=== PATIENT | female | born 1990 | race Caucasian/White ===

== ENCOUNTER → 2024-05-12 09:01 | Outpatient (CLI) | payer OTHER, SELFPAY | PROVIDERS: Visit Provider Physician Assistant Medical | DX: J02.9 Acute pharyngitis, unspecified (principal) | CPT/HCPCS: 87070 ==

== ENCOUNTER → 2024-05-14 08:14 | Outpatient (CLI) | payer OTHER, SELFPAY ==
[2024-05-14 09:36] LABS: Adenovirus Not Detected (Not Detect); B. parapertussis Not Detected (Not Detecte); Bordetella pertussis Not Detected (Not Detect); Chlamydophila pneumoniae Not Detected (Not Detect); Coronavirus 229E Not Detected (Not Detect); Coronavirus HKU1 Not Detected (Not Detect); Coronavirus NL 63 Detected (Not Detect); Coronavirus OC43 Not Detected (Not Detect); Human Metapneumovirus Not Detected (Not Detect); Human Rhinovirus/Enterovirus Not Detected (Not Detect); Influenza A Not Detected (Not Detect); Influenza B Not Detected (Not Detect); Mycoplasma pneumoniae Not Detected (Not Detect); Parainfluenza Virus 1 Not Detected (Not Detect); Parainfluenza Virus 2 Not Detected (Not Detect); Parainfluenza Virus 3 Not Detected (Not Detect); Parainfluenza Virus 4 Not Detected (Not Detect); Respiratory Syncytial Virus Not Detected (Not Detect); SARS- CoV-2 Not Detected (Not Detecte)
== END ==
PROVIDERS: Visit Provider Nurse Practitioner Family
DX: R05.1 Acute cough (principal)
CPT/HCPCS: 87633

== ENCOUNTER 2024-05-18 11:31 | Emergency (ER) | payer OTHER, SELFPAY ==
[2024-05-18 11:34] VITALS: BP 116/70; PULSE 104; RESP 18; TEMP 36.9; O2SAT 100; BMI 20.2
--- NOTE | 2024-05-18 11:45 | DI.RAD.S_ITS ---
PROCEDURE: XR CHEST 1V INDICATIONS: eval for PNA TECHNIQUE: One view of the chest was acquired. COMPARISON: None. FINDINGS: Surgical changes and devices: None. Lungs and pleura: No dense consolidation or pleural effusions. Mediastinum: Normal heart size Bones and chest wall: Unremarkable IMPRESSION: No acute radiographic abnormality on this single view study. Dictated by: Florin Encinas M.D. on 05/18/2024 at 11:17 Approved by: Florin Encinas M.D. on 05/18/2024 at 11:17
--- NOTE | 2024-05-18 11:54 | ED.GENADULT ---
HPI - General Adult General Chief complaint: Upper Respiratory Symptoms Stated complaint: COVID +, Severe Cough Time Seen by Provider: 05/18/24 11:40 Source: patient Mode of arrival: Ambulatory History of Present Illness HPI narrative: Patient is a 33-year-old female. No underlying lung pathology. Approximately 6 days ago was diagnosed with coronavirus (not COVID-19). She was 13 weeks . She was here because of a severe cough and is concerned about pneumonia. No fevers. Nonproductive cough. Related Data Home Medications Medication Instructions Recorded Confirmed ferrous sulfate 325 mg (65 mg 325 mg PO DAILY 04/19/24 05/14/24 iron) tablet (FeroSul) vitamin-ferrous sulfate tab PO 04/19/24 05/14/24 27 mg iron-folic acid 0.8 mg tablet Previous Rx's Medication Instructions Recorded ondansetron 4 mg disintegrating 4 mg PO Q8H PRN nausea and 05/16/24 tablet vomiting #30 tabs Allergies Allergy/AdvReac Type Severity Reaction Status Date / Time No Known Drug Allergies Allergy Verified 05/18/24 11:39 Review of Systems Review of Systems Narrative: See HPI Patient History Medical History Recurrent UTI History of strep sore throat Surgical History (Updated 04/19/24 @ 10:07 by Nadia Carmona RN) No pertinent past surgical history Family History (Updated 04/19/24 @ 10:11 by Nadia Carmona RN) Father Pacemaker Heart disease Grandfather Diabetes mellitus Colon cancer Grandfather Heart disease Uncle Cancer Uncle Diabetes mellitus Social History marital status: number of children: 1 household members: spouse and children lives independently: Yes caregiver/support person: Yes housing: house pets and animals: Yes (dog) education level: college (Associate's degree) occupational status: previously employed current occupational exposures/hazards: No special mihir needs: Yes travel history: recent (domestic only) seatbelt use: always water heater temp set < 120 deg: Yes working smoke detector in home: Yes fire extinguisher in home: Yes carbon monox detector in home: Yes firearms in home: Yes firearms unloaded and locked: Yes do you feel safe at home: Yes Smoking Status: Never smoker second hand exposure: No alcohol intake: former (occasional glass wine or cocktail when not ) substance use type: does not use during the past year weight has: remained stable (back to normal pre- weight) well-balanced diet: daily or most days daily servings fruits/ve or more times/day caffeine: Yes (AM cup coffee) Type(s) of exercise: walking Smoking Status: Never smoker Exam Initial Vital Signs Initial Vital Signs: Vital Signs Temperature 98.5 F 05/18/24 11:34 Pulse Rate 104 H 05/18/24 11:34 Respiratory Rate 18 05/18/24 11:34 Blood Pressure 116/70 05/18/24 11:34 Pulse Oximetry 100 05/18/24 11:34 Oxygen Delivery Method Room Air 05/18/24 11:34 Const General: cooperative, comfortable and No ill appearing HENMT Head: normal to inspection and normocephalic Resp Effort & Inspection: normal respiratory effort Auscultation: clear to auscultation bilaterally Cardio Rate: regular rate Rhythm: regular rhythm Skin General: no rashes or lesions noted Course Orders Ordered: ED Orders 05/18/24 11:45 XR chest 1V Stat Vital Signs Vital signs: Vital Signs - 8 hr 05/18/24 11:34 Temperature 98.5 F Pulse Rate 104 H Respiratory Rate 18 Blood Pressure 116/70 Pulse Oximetry 100 Oxygen Delivery Method Room Air Medical Decision Making Imaging Data Chest x-ray: Radiologist's Impression: PROCEDURE: XR CHEST 1V INDICATIONS: eval for PNA TECHNIQUE: One view of the chest was acquired. COMPARISON: None. FINDINGS: Surgical changes and devices: None. Lungs and pleura: No dense consolidation or pleural effusions. Mediastinum: Normal heart size Bones and chest wall: Unremarkable IMPRESSION: No acute radiographic abnormality on this single view study. MDM Narrative Medical decision making narrative: Patient has known non COVID-19 coronavirus infection. Chest x-ray is unremarkable. Lungs are clear. Not hypoxic. No respiratory distress. I did discuss this with her. We discussed the use of Tylenol for fevers or body aches. Recommended that she talk with her pharmacist about other cough and cold preparations that can be safe in . She was given return precautions and follow-up instructions. She expressed understanding and agreement. Discharge Plan Departure Patient Disposition: Home Clinical Impression: Upper respiratory infection Instructions: Cough Activity Restrictions/Additional Instructions: Continue to take all of your medications as directed. Contact your primary care doctor for a follow-up. Return to the emergency department for new or worsening symptoms. Prescriptions: No Action ondansetron 4 mg tablet,disintegrating 4 mg PO Q8H PRN (Reason: nausea and vomiting) Qty: 30 0RF vit-ferrous sulfat-FA 27 mg iron- 0.8 mg tablet PO ferrous sulfate [FeroSul] 325 mg (65 mg iron) tablet 325 mg PO DAILY Referrals: Miscellaneous,Doctor, MD [Primary Care Provider] - Stand Alone Forms: Patient Portal/API/Survey
[2024-05-18 12:54] VITALS: BP 110/70; PULSE 100; RESP 20; TEMP 37; O2SAT 100
== END 2024-05-18 12:55 | disposition home or self-care (01) ==
PROVIDERS: Emergency Provider Emergency Medicine
DX: O99.511 Diseases of the respiratory system complicating pregnancy, first trimester (principal); Z3A.13 13 weeks gestation of pregnancy
CPT/HCPCS: 71045; 99281; 99283

== ENCOUNTER → 2024-05-27 09:20 | Outpatient (CLI) | payer OTHER, SELFPAY ==
[2024-05-27 10:29] LABS: Add Manual Diff / Slide Review NO; Basophils Absolute Auto 0 /uL (0-100); Basophils Percent Auto 0.4 % (0-2); Eosinophils Absolute Auto 100 /uL (0-450); Eosinophils Percent Auto 0.6 % (2-4); Hematocrit 32.7 % (36-46); Hemoglobin 11.1 g/dL (12.0-16.0); Lymphocytes Absolute Auto 1900 /uL (1100-4500); Lymphocytes Percent Auto 17.3 % (25-40); Mean Corpuscular HGB Conc 34.1 % (30-36); Mean Corpuscular Hemoglobin 30.4 PG (26-34); Mean Corpuscular Volume 89.1 fL (80-100); Monocytes Absolute Auto 500 /uL (0-900); Neutrophils Absolute Auto 8300 /uL (1500-7000); Neutrophils Percent Auto 76.7 % (50-75); Platelet Count 367 X10^3/uL (150-400); Red Blood Cell Count 3.67 X10^6/uL (4.0-5.2); Red Cell Distribution Width 13.2 % (11.6-14.8); White Blood Cell Count 10.8 X10^3/uL (4.5-11.0)
[2024-05-27 10:50] LABS: Natera Collection Specimen Collected
[2024-05-27 11:40] LABS: Hepatitis B Surface Antigen NEGATIVE s/c (NEGATIVE); Rubella Antibody IgG 13.8 IU/mL (>15)
[2024-05-27 12:00] LABS: HIV 1 & 2 Ab/Ag 4th Gen Combo NEGATIVE (NEGATIVE); Hep C Virus Ab w/Reflex Quant NEGATIVE s/c (NEGATIVE)
[2024-05-28 08:10] LABS: RPR Screen Non Reactive (Non Reactive)
[2024-05-28 09:08] LABS: Varicella IgG Antibody Reactive (Non Reactive)
== END ==
PROVIDERS: Referring Provider Student in an Organized Health Care Education/Training Program; Visit Provider Student in an Organized Health Care Education/Training Program
DX: Z34.81 Encounter for supervision of other normal pregnancy, first trimester (principal); Z36.0 Encounter for antenatal screening for chromosomal anomalies
CPT/HCPCS: 36415; 80055; 86787; 86803; 86850; 86900; 86901; 87086; 87389

== ENCOUNTER → 2024-07-12 13:56 | Outpatient (CLI) | payer OTHER, SELFPAY ==
--- NOTE | 2024-07-12 13:57 | DI.US.S_ITS ---
PROCEDURE: US OB >= 14 WEEKS FETUS INDICATIONS: ANATOMY OUTSIDE/PRIOR DATING DATA: Last menstrual period (LMP): Unsure. LMP-based estimated date of delivery (BUSHRA): 11/23/24. First dating scan (date and location): 04/22/24. Estimated date of delivery (BUSHRA) from first dating scan: 11/24/24. The calculations are made using the working BUSHRA of 11/24/24. TECHNIQUE: Real-time scanning was performed of the fetus, with image documentation and biometric measurements. Endovaginal scanning: Yes COMPARISON: None. FINDINGS: General: A single living intrauterine gestation is present. Presentation: Vertex. Placenta: Placental position is posterior and low lying. The edge is about 1.3 cm from the internal cervical os by transvaginal imaging. The placental cord insertion is also low, from 0.7-0.9 cm from the inferior placental edge. There is a loop of cord presenting between the head and cervical os. No definite Vasa previa is seen.. Amniotic fluid index: 17.7 cm, normal range is 5-24 cm. Single deepest vertical pocket is 5.2 cm. heart rate: 144 beats per minute. Maternal cervical canal: Closed and 4.0 cm long. Normal lower limit is 2.5 cm. biometrics: Biparietal diameter: 4.9 cm, 20 weeks six days Head circumference: 17.9 cm, 20 weeks two days Abdominal circumference: 16.4 cm, 21 weeks three days Femur length: 3.5 cm, 20 weeks six days Clinically estimated gestational age: 20 weeks six days Composite gestational age from present scan: 20 weeks six days Estimated weight and percentile: 399 g, 58th percentile Anatomic survey: Neuro: Ventricles are non-dilated at less than 10 mm. Cisterna magna is normal at 3-11 mm. Cerebellum is normal in size and morphology. Nuchal skin fold: Normal at less than 6 mm between 14-21 weeks gestational age. Face: Nose and lips, facial profile are normal. Spine: No evidence for spina bifida. Heart: 4-chambered heart is present, with normal ventricular outflow tracts. Diaphragm: Diaphragm is intact. Stomach: Left-sided stomach is present. Kidneys: No hydronephrosis. Normal is less than 5 mm in 2nd trimester, less than 7 mm in 3rd trimester. Cord: 3-vessel cord has orthotopic insertion. Bladder: Normal in size. Extremities: All 4 extremities identified. IMPRESSION: Single live intrauterine with estimated weight at the 58th percentile. Symmetric growth and normal anatomy. Composite gestational age is in good agreement with the working gestational age. Posterior low lying placenta with also a low marginal cord insertion. No definite Vasa previa. Close follow-up is recommended. Closed cervix and normal amniotic fluid volume. We strive to produce accurate, complete, and clear reports of imaging services. To assist us in improving patient care, this report was composed using standard report templates and voice recognition software. Therefore, it may contain abnormal punctuation, insertions and/or omissions. Occasional wrong-word or sound-alike substitutions may occur. Though we review the report and make efforts to correct it, we do recommend that the report be read carefully in proper context to recognize any text inaccuracies. Dictated by: Samina Marin M.D. on 07/14/2024 at 8:24 Approved by: Samina Marin M.D. on 07/14/2024 at 9:20
== END ==
PROVIDERS: PCP Family Medicine; Referring Provider Student in an Organized Health Care Education/Training Program; Visit Provider Student in an Organized Health Care Education/Training Program
DX: O44.42 Low lying placenta NOS or without hemorrhage, second trimester (principal); O43.192 Other malformation of placenta, second trimester; Z3A.20 20 weeks gestation of pregnancy
CPT/HCPCS: 76811; 76817

== ENCOUNTER → 2024-09-02 10:09 | Outpatient (CLI) | payer OTHER, SELFPAY ==
[2024-09-02 12:18] LABS: GTT (PREG) 1 Hour PP 50gm Dose 83 mg/dL (76-139)
[2024-09-02 12:21] LABS: Hematocrit 32.4 % (36-46); Hemoglobin 11.2 g/dL (12.0-16.0)
== END ==
PROVIDERS: PCP Family Medicine; Referring Provider Student in an Organized Health Care Education/Training Program; Visit Provider Student in an Organized Health Care Education/Training Program
DX: Z13.0 Encounter for screening for diseases of the blood and blood-forming organs and certain disorders involving the immune mechanism (principal); Z13.1 Encounter for screening for diabetes mellitus
CPT/HCPCS: 36415; 82950; 85014; 85018

== ENCOUNTER → 2024-10-03 06:44 | Outpatient (CLI) | payer OTHER, SELFPAY ==
--- NOTE | 2024-10-03 06:45 | DI.US.S_ITS ---
PROCEDURE: US OB LIMITED INDICATIONS: EFW; PLACENTA, CI OUTSIDE/PRIOR DATING DATA: LMP-based estimated date of delivery (BUSHRA): 11/23/24. First dating scan (date and location): 04/22/24. Estimated date of delivery (BUSHRA) from first dating scan: 11/24/24. The calculations are made using the sonographic BUSHRA of 11/24/24. TECHNIQUE: Real-time scanning was performed of the fetus, with image documentation and biometric measurements. Endovaginal scanning: For improved cervical detail COMPARISON: [facility], , US OB >= 14 WEEKS FETUS, 07/12/2024, 14:06. FINDINGS: General: A single living intrauterine gestation is present. Presentation: Vertex. Placenta: Placental position is posterior to the left , without previa. Mature appearance. Placental cord origin was not seen. Amniotic fluid index: 9.4 cm, normal range is 5-24 cm. Single deepest vertical pocket is 4.1 cm. heart rate: 135 beats per minute. Maternal cervical canal: Closed and 3.5 cm long. Transvaginal imaging demonstrated no evidence of vascular structures crossing the internal cervical os. Normal lower limit is 2.5 cm. biometrics: Biparietal diameter: 8.0 cm, 32 weeks 0 days Head circumference: 28.9 cm, 31 weeks six days Abdominal circumference: 27.8 cm, 31 weeks six days Femur length: 6.2 cm, 31 weeks six days Clinically estimated gestational age: 32 weeks four days Composite gestational age from present scan: 31 weeks six days Estimated weight and percentile: 1861 g, 21st percentile IMPRESSION: Single living intrauterine with estimated weight at the 21st percentile. Symmetric growth. Posterior placenta without evidence of previa. No Vasa previa by transvaginal imaging. Placental cord origin is not well seen. We strive to produce accurate, complete, and clear reports of imaging services. To assist us in improving patient care, this report was composed using standard report templates and voice recognition software. Therefore, it may contain abnormal punctuation, insertions and/or omissions. Occasional wrong-word or sound-alike substitutions may occur. Though we review the report and make efforts to correct it, we do recommend that the report be read carefully in proper context to recognize any text inaccuracies. Dictated by: Samina Marin M.D. on 10/03/2024 at 13:24 Approved by: Samina Marin M.D. on 10/03/2024 at 13:32
== END ==
PROVIDERS: PCP Family Medicine; Referring Provider Student in an Organized Health Care Education/Training Program; Visit Provider Student in an Organized Health Care Education/Training Program
DX: O43.193 Other malformation of placenta, third trimester (principal); O26.843 Uterine size-date discrepancy, third trimester; Z3A.32 32 weeks gestation of pregnancy
CPT/HCPCS: 76815

== ENCOUNTER → 2024-10-28 09:05 | Outpatient (CLI) | payer OTHER, SELFPAY ==
[2024-10-29 14:14] LABS: Strep Grp B PCR NEG for Grp B Strep
== END ==
PROVIDERS: PCP Family Medicine; Visit Provider Student in an Organized Health Care Education/Training Program
DX: Z36.85 Encounter for antenatal screening for Streptococcus B (principal)
CPT/HCPCS: 87653

== ENCOUNTER 2024-11-17 10:24 | Outpatient (CLI) | payer OTHER, SELFPAY | END 2024-11-17 11:13 | disposition home or self-care (01) | LOC: LABOR 10:27 → OB 11:17 | PROVIDERS: PCP Family Medicine; Referring Provider Obstetrics & Gynecology; Visit Provider Student in an Organized Health Care Education/Training Program | DX: O26.23 Pregnancy care for patient with recurrent pregnancy loss, third trimester (principal); Z3A.39 39 weeks gestation of pregnancy | CPT/HCPCS: 59025; G0378; G0379 ==

== ENCOUNTER 2024-11-21 14:14 | Outpatient (CLI) | payer OTHER, SELFPAY | END 2024-11-21 14:45 | disposition home or self-care (01) | LOC: LABOR 14:28 → OB 11-22 06:07 | PROVIDERS: PCP Family Medicine; Referring Provider Obstetrics & Gynecology; Visit Provider Obstetrics & Gynecology | DX: O43.893 Other placental disorders, third trimester (principal); Z3A.39 39 weeks gestation of pregnancy | CPT/HCPCS: 59025; G0378; G0379 ==

== ENCOUNTER 2024-11-22 15:55 | Inpatient (IN) | payer OTHER, SELFPAY ==
--- NOTE | 2024-11-22 17:38 | PM.OBHP.IH.1 ---
OB HPI Date/Time Date of admission: 11/22/24 Date Patient Seen: 11/22/24 Time Patient Seen: 16:45 History of Present Condition Chief complaint: IOL, oligo BUSHRA Calculator Estimated Delivery Date Method Current WG Current Estimate 11/23/24 LMP (Certain) 39w 6d Other Estimates 11/24/24 Ultrasound #1 39w 5d Estimated Gestational Age (weeks): 39.6 : 4 Para: 1 Narrative: 34yo at 39w6d by 9wk US presented to triage for further evaluation with NST/BPP after incidental identification of new bradycardia (caryn 100bpm) at time of office encounter today. On arrival to unit FHR 120bpm with +accels however late deceleration following palpable strong contraction to 95bpm with rapid return to 110bpm however noted decrease in variability. BPP ordered per DI however due to staffing limitations provider presented bedside to perform. BPP notable for significant oligohydramnios (total MARCI 1.5cm), +respirations, +tone. Due to finding of new oligo at term patient and partner counseled on recommendation to proceed with admission tonight for IOL at term as previously discussed in office. course significant prior x1 (tested to 8#). course notable for low-risk cfDNA (XX), marginal cord insertion, interval growth scan without evidence of IUGR (EFW 21st% 10/05) at 33wga, GBS negative. Ultrasound Details:: Dating US 04/22/24: grey IUP with CRL 2.5cm (9+1wks), +FCA 174bpm, normal appearing uterus, cervix, bilateral ovaries Anatomy US 07/12/24: normal anatomy, 58%ile, low-lying placenta with marginal cord insertion MFM US 08/05/24: normal anatomy, NO low-lying placenta, marginal cord insertion (11mm from edge), EFW 62%ile Growth US 10/03/24: EFW 21%ile, no previa, cord insertion not visualized Dating criteria OB: based on 1st trimester US only Ultrasounds: normal 1st trimester US, normal mid trimester US and abnormal US findings (marginal cord insertion (11mm)) Obstetrical complications: other (oligohydramnios at term) Medical complications OB: none Indications Indication for induction OB: oligohydramnios Preadmission Labs Last OB Lab Results: Blood Type A Positive 05/27/24, 09:49 Antibody Screen Negative 05/27/24, 09:49 Hct, (36-46) 32.4 % L 09/02/24, 10:12 Hgb, (12.0-16.0) 11.2 g/dL L 09/02/24, 10:12 Hep Bs Antigen, (NEGATIVE) Negative s/c 05/27/24, 09:49 Hepatitis C Antibody, (NEGATIVE) Negative s/c 05/27/24, 09:49 Rubella Antibody, (>15) 13.8 IU/mL L 05/27/24, 09:49 VZV IgG Antibody, (Non Reactive) Reactive 05/27/24, 09:49 Glucose 1 Hr 50 gm, (76-139) 83 mg/dL 09/02/24, 11:17 Group B Strep (PCR) Neg for grp b strep 10/28/24, 09:05 -: Chlamydia screen: negative and Gonorrhea screen: negative -: PAP smear: Normal Genetic Screens: Cell-free DNA: Normal and Alpha-fetoprotein: Normal Prior (ies) Past Pregnancies Del. Date GA/Weeks Labor Lgth Wt Sex Route Outcome Anesthesia Place Delv Breastfeed Preg Comp Name 08/16/22 39.5 8 8 lb Male vaginal live - full term epidural [place] [facility] [place] 4 months none Crue 05/18/23 7-8 spontaneous 11/15/23 ~6 spontaneous Delivery Date: 05/18/23 Last Updated by: Nadia Carmona RN passed spontaneously, no complications Delivery Date: 11/15/23 Last Updated by: Nadia Carmona RN passed spontaneously, no complications Hx # Term Pregnancies: 1 Number of Living Children: 1 Spontaneous abortions: 2 Evaluation Evaluation Baseline heart rate: 115 Variability: Moderate (6-25) monitor accelerations: Present Monitor Decelerations: Episodic Uterine Contraction Intensity: Mild Category of Tracing: Reactive Status: Category ll Dilation (cm): 1 Effacement (%): 0 Dilation: 1-2 cm Effacement: 0-30% station: -1 Position of cervix: posterior Consistency: medium Mayorga score: 4 PFSH Medical History Recurrent UTI History of strep sore throat Surgical History (Updated 04/19/24 @ 10:07 by Nadia Carmona RN) No pertinent past surgical history Family History (Updated 04/19/24 @ 10:11 by Nadia Carmona RN) Father Pacemaker Heart disease Grandfather Diabetes mellitus Colon cancer Grandfather Heart disease Uncle Cancer Uncle Diabetes mellitus Social History marital status: number of children: 1 household members: spouse and children lives independently: Yes caregiver/support person: Yes housing: house pets and animals: Yes (dog) education level: college (Associate's degree) occupational status: previously employed current occupational exposures/hazards: No special mihir needs: Yes travel history: recent (domestic only) seatbelt use: always water heater temp set < 120 deg: Yes working smoke detector in home: Yes fire extinguisher in home: Yes carbon monox detector in home: Yes firearms in home: Yes firearms unloaded and locked: Yes do you feel safe at home: Yes second hand exposure: No alcohol intake: former (occasional glass wine or cocktail when not ) substance use type: does not use during the past year weight has: remained stable (back to normal pre- weight) well-balanced diet: daily or most days daily servings fruits/ve or more times/day caffeine: Yes (AM cup coffee) Type(s) of exercise: walking Meds Home Medications and Allergies Home Medications ?Medication ?Instructions ?Recorded ?Confirmed ?Type ferrous sulfate 325 mg (65 mg 325 mg PO DAILY 04/19/24 11/17/24 History iron) tablet (FeroSul) vitamin-ferrous sulfate tab PO 04/19/24 11/17/24 History 27 mg iron-folic acid 0.8 mg tablet ondansetron 4 mg disintegrating 4 mg PO Q8H PRN nausea and 10/28/24 11/17/24 Rx tablet vomiting #30 tabs Allergies Allergy/AdvReac Type Severity Reaction Status Date / Time No Known Drug Allergies Allergy Verified 11/22/24 15:25 Review of Systems Review of Systems ROS: Yes All systems reviewed with the patient and are negative except as otherwise documented OB Exam Vital signs Blood Pressure: 100/59 Pulse Rate: 98 Respiratory Rate: 14 Temperature: 97.2 F HENMT Head: normal to inspection Resp Effort & Inspection: normal respiratory effort and able to speak in complete sentences Cardio Rate: regular rate Extremities Lower extremity: Yes normal to inspection GI Palpation: Yes soft Other: gravid, alvino cephalic 7# External Female Exam: Yes normal external appearance Assessment and Plan Assessment and Plan Assessment and Plan narrative: 34yo at 39w6d by 9wk US admitted for indicated IOL at term in setting of newly identified oligohydramnios IOL, new oligohydramnios patient and partner counseled on US findings, in agreement with recommendation to proceed with IOL this evening as discussed in office Reviewed increased risk of intolerance to labor in setting of oligohydramnios as well as observed deceleration with spontaneous contraction, low threshold to proceed to in adventist of distress patient and partner verbalize understanding, strongly desire vaginal delivery if at all possible continuous CEFM/toco cervidil at 1900 for overnight cervical ripening, notify provider with any maternal/ concerns gentle IVF bolus now then ok to saline lock GBS negative Patient is consented for induction of labor, vaginal delivery, vaginal operative delivery and cesrean delivery as well as transfusion of blood products as medically indicated anticipate Time-Based Coding :: [TOTAL MINUTES] spent with patient and on the chart (including review of chart, obtaining history, exam, reviewing outside data, placing orders, documenting exam and treatment plan, and counseling patient) on [DATE].
[2024-11-22 17:46] VITALS: BP 100/59
[2024-11-22 17:50] VITALS: BP 100/59; PULSE 98; RESP 14; TEMP 36.2
[2024-11-22 18:07] LABS: Add Manual Diff / Slide Review NO; Hematocrit 37.6 % (36-46); Hemoglobin 12.6 g/dL (12.0-16.0); Lymphocytes Absolute Auto 2400 /uL (1100-4500); Mean Corpuscular HGB Conc 33.4 % (30-36); Mean Corpuscular Hemoglobin 31.1 PG (26-34); Mean Corpuscular Volume 92.9 fL (80-100); Platelet Count 250 X10^3/uL (150-400)
[2024-11-22] MEDS: DINOPROSTONE VAG (CERVIDIL) 10 MG VAG (21:25)
--- NOTE | 2024-11-23 12:54 | PM.OBPNLAB ---
Date/Time Date Patient Seen: 11/23/24 Time Patient Seen: 12:54 Pain Control Pain control: tolerating well Pelvic Exam Dilation (cm): 1 Effacement (%): 50 station: -3 Amniotic membrane status: Intact Contractions Contractions on admission: none Monitor mode: External Contraction pattern: Regular Contraction phase: Resting Contraction intensity: Mild Status status: Category ll Heart Rate Baseline: 120 Monitor Accelerations: Present Monitor Decelerations: Absent Monitor Variability: Moderate Assessment and Plan Assessment: other (Ripening ongoing) Plan: continuous present management Comments: Most recent Mayorga score is only for therefore Cytotec initiated following removal of Cervidil. Will recheck at approximately 3:00 p.m. to reassess Mayorga score and make a decision regarding initiation of Pitocin her continuation of Cervidil until cervix is sufficiently ripened.
--- NOTE | 2024-11-23 17:13 | PM.PROC.1 ---
Procedures Date/Time Date of procedure: 11/23/24 Time of procedure: 16:45 General Procedure description: 1644: Spinal block for late stage labor: OB patient IOL for oligo, calcified placenta. at 40 weeks now dilated to 10cm, station -2 asking for spinal block for delivery. Chart reviewed, allergies/labs/anticoag status confirmed. R/B discussed with patient and spouse at bedside. Questions answered, consent signed. Patient placed in sitting postioned. Chloraprep skin prep, dried x 3 min. Sterile drape. 1652: 1% lido skin local. Introducer, 25G spinal needle at L4-5. Neg heme/pares, Pos CSF a/p injection of 2.5mg 0.75% bupivicaine. Procedure easy without complications, VSS stable throughout. Patient states she is much more comfortable. Baby at 1709. Complications: none
[2024-11-23] MEDS: METHYLERGONOVINE 0.2 MG/ML VIAL IM (17:30)
--- NOTE | 2024-11-23 17:31 | PM.OBPRVD ---
Events: Oligohydramnios and Other (Marginal cord insertion, grade 3 placenta) Labor & Delivery Delivery date: 11/23/24 Delivery Time: 17:06 Intrapartal Events: None Cervical ripening method: per Cervidil protocol Induction method: none Delivery monitor: external FHT and external uterine Route of delivery: Episiotomy description: None L&D Laceration Description: Perineal - 1st Degree (Hemostatic, no closure required) Estimated blood loss (mL): 250 Anesthesia Type: Spinal (Saddle block in 2nd stage) Complications: None Narrative: Following a 20 minute 2nd stage, the patient delivered spontaneously over an intact perineum a viable female infant with Apgars of 7/8, and a weight of 2949 gms. (6 lbs. 8 oz.). A tight nuchal cord was encountered at delivery and reduced after delivery of the shoulders. No shoulder dystocia was encountered. Skin to skin contact initiated immediately following . The infant was vigorous and delayed cord count clamping was performed. Once the umbilical cord stopped pulsating, the cord itself was doubly clamped and cut. A group sales representative cord blood sample was then taken for routine studies. Delivery of the placenta was accomplished easily with gentle cord traction and suprapubic countertraction. Inspection of the umbilical cord showed a highly calcified placenta with a marginal cord insertion as previously diagnosed by ultrasound. The placenta itself was intact. Inspection of the perineum showed a superficial first-degree perineal laceration which was hemostatic and did not require closure. Sponge, instrument, and needle count was correct following the delivery process which was well tolerated by both mother and infant. [place] Baby 1: gender: Female Presentation: vertex Position: Left Occiput Anterior Placenta delivery description: Spontaneous and Abnormal Configuration (Marginal cord insertion) Cord Vessel Description: 3 Vessels score (1 min): 7 score (5 min): 9 weight: 6 lb 8.023 oz Plan for aftercare: Routine care
--- NOTE | 2024-11-23 17:55 | PATH_ITS ---
[facility] Accession Number: [id number] No. of containers..01 Tissue . 01 Material submitted: . placenta - PLACENTA . 01 Diagnosis: PLACENTA: Placenta parenchyma: Weight: 455 grams. Patchy regions of infarction involve approximately 20-30% of maternal surface, approximately 10% of the parenchymal surface. Patchy calcification involves less than 10% of the placenta parenchyma. Chorionic villous maturation is variable, with patchy immature morphology. Moderate inter and intravillous fibrin is present. Mild, possible villitis present. . Umbilical cord: 30.5 cm in length. Marginally inserted 1.6 cm from the nearest placental disc margin. Three vessels present. No funisitis identified. . Membranes: Inserted marginally. Ruptured 2.5 cm from the nearest placental disc margin. Mild chronic inflammation with rare plasma cells of undetermined significance. Rare, patchy neutrophils present, suggestive of mild, focal acute chorioamnionitis. [facility] 11/29/2024 1733 Local . 01 Electronically signed: . Zoraida Crespo MD, Pathologist NPI- [id number] . 01 Gross description: . Received in formalin with two identifiers and placenta, is an ovoid grey placenta, 455 grams and measuring 23.9 x 14.7 x 2.3 cm, with no accessory lobes identified. The membranes are fine and translucent with no thickening or discoloration identified. They insert marginally and rupture approximately 2.5 cm from the placental dism margin. . The cord is 30.5 cm in length by 1.2 cm in average diameter with a leftward coil and an index of approximately 2 twists per 5 cm. The cord inserts marginally, measuring 1.6 cm from the nearest disc edge. Sectioning reveals unremarkable trivascular architecture with no knots or lesions identified. . The surface is blue-serra with normal arborizing vasculature and no lesions identified. . The maternal surface is presumably complete with no adherent hemorrhage and multiple areas of fine, gritty discoloration across approximately 20-30% of the maternal surface. Sectioning reveals several fine areas of discoloration located peripherally, up to 1.7 cm in greatest dimension occupying 10% of the parenchymal surface. The remaining parenchyma is red and spongy with diffuse small gritty areas of presumed calcification (less than 10%). No additional lesions are identified. . Taker Off sections are submitted as follows: A1. Membrane roll and placental end of cord. A2: Membrane roll and end of cord. A3: Full-thickness peripheral discoloration. A4-A6: Central full-thickness sections. ([id number]) /MRV 11/29/2024 1733 Local . 01 Pathologist provided ICD-10: O43.90 . 01 CPT . 701824 Specimen Comment: A courtesy copy of this report has been sent to [phone] Performed at: [address] [address], [place], [place] [id number] MD Jarrod Rodriguez MD Phone: [phone]
[2024-11-23] MEDS: KETOROLAC 30 MG/ML VIAL IV (18:00)
[2024-11-23] MEDS: ACETAMINOPHEN 325 MG TABLET 650 MG PO (19:33)
[2024-11-23] MEDS: DERMOPLAST SPRAY 20% 60 ML 1 SPRAY TOP (19:34)
[2024-11-24] MEDS: IBUPROFEN 600 MG TABLET PO ×2 (00:17→06:04)
[2024-11-24] MEDS: DOCUSATE 100 MG CAPSULE PO (00:18)
[2024-11-24] MEDS: ACETAMINOPHEN 325 MG TABLET 650 MG PO ×2 (01:33→08:14)
[2024-11-24 06:37] LABS: Add Manual Diff / Slide Review NO; Hematocrit 33.3 % (36-46); Hemoglobin 11.3 g/dL (12.0-16.0); Lymphocytes Absolute Auto 2300 /uL (1100-4500); Mean Corpuscular HGB Conc 34.1 % (30-36); Mean Corpuscular Hemoglobin 31.5 PG (26-34); Mean Corpuscular Volume 92.4 fL (80-100); Platelet Count 199 X10^3/uL (150-400)
[2024-11-24] MEDS: OXYCODONE IR 5 MG TABLET PO (09:26)
--- NOTE | 2024-11-24 11:06 | PM.OBDS.1 ---
Discharge Providers Provider Date of admission: 11/22/24 15:55 Discharge Date: 11/24/24 Primary care physician: Camilla Paniagua MD Consults: 11/23/24 17:34 Consult to Journeyman [employer] Routine Comment: Discharge provider: Camilo Finch MD Summary Hospital Course Date Patient Seen: 11/24/24 Time Patient Seen: 11:06 Diagnoses: Intrauterine gestation, 40+ 0 weeks, delivered by spontaneous vaginal Oligohydramnios Marginal umbilical cord insertion GBS negative status Hospital Course: [place] was admitted on the evening of 11/22/2024 for cervical ripening due to oligohydramnios with marginal umbilical cord insertion at 39+ 6 weeks gestational age. Cervidil was used to ripen the cervix overnight and oral Cytotec x2 doses was used during the day of 11/23/2024 resulting in the spontaneous vaginal of a viable female weighing 2949 g (6 lb 8 oz) with Apgars of 7/9 early on the evening of 11/23/2024. The patient sustained a small first-degree perineal laceration which did not require closure. Following delivery, the patient and her infant have both done exceptionally well with the mother experiencing prompt return of bowel and bladder function, she is ambulating independently, tolerating a regular diet, and her pain is well-controlled with oral pain medications. She will be discharged at this time to home after counseling regarding precautionary symptoms, limitations activity, medications, plans for follow-up which will be in 6 weeks. Medications at discharge will include resumption of vitamins and iron with the patient using vhcu-zsf-imfmhxn Tylenol and/or ibuprofen as needed for pain relief. Peripartum Data Infant Delivery Method: Natural Vaginal Laceration Description: Perineal - 1st Degree Episiotomy description: None Procedures: Saddle block anesthetic Spontaneous vaginal complications: none Burton 1: Gender: Female Disposition of : home Status at Discharge Cognitive/behavioral status at discharge: oriented Functional status at discharge: independent ambulation Overall status at discharge: patient is progressing back to baseline Time Spent with Patient Time attestation: Total time spent providing and/or coordinating discharge services: 20 minutes Objective Labs 11/24/24 06:15 Labs: Laboratory Results - last 24 hr 11/24/24 06:15 WBC 15.0 H RBC 3.60 L Hgb 11.3 L Hct 33.3 L MCV 92.4 MCH 31.5 MCHC 34.1 RDW 13.1 Plt Count 199 Neut % (Auto) 77.4 H Lymph % (Auto) 15.3 L [place] % (Auto) 6.6 Eos % (Auto) 0.4 L Baso % (Auto) 0.3 Neut # (Auto) 22123 H Lymph # (Auto) 2300 [place] # (Auto) 1000 H Eos # (Auto) 100 Baso # (Auto) 0 Exam HENMT Head: normal to inspection, normocephalic and atraumatic Eyes General: appearance normal, both eyes and all related structures Resp Effort & Inspection: normal respiratory effort and able to speak in complete sentences GI Inspection: normal to inspection Palpation: soft and no hepatosplenomegaly External Female Exam: normal external appearance (Early healing ongoing) and other (Light lochia) Extrem Right lower extremity: normal to inspection Left lower extremity: normal to inspection Discharge Plan Discharge Plan Patient Disposition: Home Provider Discharge Comment: Please review the written instructions you received when you were discharged from the hospital. Your follow-up appointment will be scheduled for 6 weeks after delivery and we look forward to seeing you then. If however in the meanwhile you have any questions, concerns, or other issues, please contact our office either by phone at [phone], or via the patient portal. Discharge orders & Medications Prescriptions: Continued vit-ferrous sulfat-FA 27 mg iron- 0.8 mg tablet 1 tab PO DAILY ferrous sulfate [FeroSul] 325 mg (65 mg iron) tablet 325 mg PO DAILY Medication counseling provided by Pharmacist: No Follow up/Referrals: Claudette Dhillon DO [Physician, INFORMATION TECHNOLOGY INTERN] - 6 Weeks Referral Note: 2 week telehealth (phone call) Appt w/ Dr. Dhillon: December 09 @ 4pm. 6 week Appt w/ Dr. Dhillon: January 03 @ 2:15pm Camilo Finch MD [Physician, INFORMATION TECHNOLOGY INTERN] Discharge Health Status Multidrug resistant organism: No MDRO Diet/Activity/Treatments Diet: Diet as Tolerated Activity: As tolerated Other treatments: Qsfh-jsb-hhuhwyj Tylenol and/or ibuprofen may be used as needed for additional pain relief. Mggj-ptk-waiudxn stool softeners and/or MiraLax may be used as needed for constipation Skin/Wound/Dressing Care Report to your healthcare provider any signs of infection, such as:: chills, fever, increased pain and unusual drainage Dressing: N/A Visit Report/Discharge Packet Instructions: DI for Labor and Delivery, Vaginal , DI for and Nipple Soreness Stand Alone Forms: Patient Portal/API, Stroke Signs & Symptoms Discharge Data Primary Care Provider: Camilla Paniagua
[2024-11-24 11:51] VITALS: BP 99/58; PULSE 68; RESP 14; TEMP 36.6
== END 2024-11-24 13:32 | disposition home or self-care (01) | DRG 807 ==
PROVIDERS: Obstetrics & Gynecology; Admitting Provider Student in an Organized Health Care Education/Training Program; PCP Family Medicine; Referring Provider Student in an Organized Health Care Education/Training Program; Visit Provider Student in an Organized Health Care Education/Training Program
DX: O41.03X0 Oligohydramnios, third trimester, not applicable or unspecified (principal); Z37.0 Single live birth; Z3A.39 39 weeks gestation of pregnancy; O76 Abnormality in fetal heart rate and rhythm complicating labor and delivery; O43.193 Other malformation of placenta, third trimester; O43.893 Other placental disorders, third trimester
CPT/HCPCS: 36415; 59050; 59200; 59400; 59409; 85025; 86850; 86900; 86901; G0379; J1885; J2210; S0191

== ENCOUNTER → 2024-12-27 11:55 | Outpatient (CLI) | payer OTHER, SELFPAY | PROVIDERS: PCP Family Medicine; Visit Provider Family Medicine | DX: N39.0 Urinary tract infection, site not specified (principal) | CPT/HCPCS: 87086 ==

== ENCOUNTER → 2025-01-27 11:04 | Outpatient (CLI) | payer OTHER, SELFPAY ==
[2025-01-27 15:52] LABS: Appearance Urine UA CLEAR; Bilirubin Urine UA NEGATIVE (NEGATIVE); Color Urine UA YELLOW; Glucose Urine UA NEGATIVE (Negative); Ketones Urine UA NEGATIVE (NEGATIVE); Leukocyte Esterase Urine UA NEGATIVE (NEGATIVE); Nitrite Urine UA NEGATIVE (Negative); Occult Blood Urine UA NEGATIVE (Negative); Protein Urine UA NEGATIVE (Negative); Specific Gravity Urine UA 1.010 (1.000-1.035); Urobilinogen Urine UA 0.2 E.U./dL (0.2)
[2025-01-27 15:54] LABS: pH Urine UA 6.0 (4.5-8.0)
[2025-01-27 16:07] LABS: Culture Indicated Urine Cult Not Indicated
== END ==
PROVIDERS: PCP Family Medicine; Referring Provider Student in an Organized Health Care Education/Training Program; Visit Provider Student in an Organized Health Care Education/Training Program
DX: R35.0 Frequency of micturition (principal)
CPT/HCPCS: 81001

== ENCOUNTER → 2025-02-07 16:53 | Outpatient (CLI) | payer OTHER, SELFPAY ==
[2025-02-07 17:38] LABS: Add Manual Diff / Slide Review NO; Hematocrit 38.4 % (36-46); Hemoglobin 12.8 g/dL (12.0-16.0); Lymphocytes Absolute Auto 2700 /uL (1100-4500); Mean Corpuscular HGB Conc 33.4 % (30-36); Mean Corpuscular Hemoglobin 29.9 PG (26-34); Mean Corpuscular Volume 89.5 fL (80-100); Platelet Count 347 X10^3/uL (150-400)
[2025-02-07 18:10] LABS: HEMOLYSIS < 15 (0-50); Iron 149 ug/dL (37-170)
[2025-02-07 18:14] LABS: Alanine Aminotransferase 13 IU/L (<35); Albumin 4.7 g/dL (3.5-5.0); Albumin Globulin Ratio 2.0 (1.0-2.8); Alkaline Phosphatase 71 U/L (38-126); Blood Urea Nitrogen 9 mg/dL (7-17); Calcium 9.5 mg/dL (8.4-10.2); Carbon Dioxide 24 mmol/L (22-32); Chloride 104 mmol/L (98-107); Estimated Glomerular Filt Rate > 60 mL/min (>60); Globulin 2.4 g/dL (1.7-4.1); Glucose 85 mg/dL (70-99); HEMOLYSIS < 15 (0-50); Potassium 3.5 mmol/L (3.4-5.1); Sodium 138 mmol/L (137-145); Total Protein 7.1 g/dL (6.3-8.2)
[2025-02-07 18:23] LABS: Percent Iron Saturation 55 % (15-50); Total Iron Binding Capacity 270 ug/dL (265-497); Transferrin 227 mg/dL (206-381)
[2025-02-07 18:41] LABS: TSH w/ Reflex to FT4 1.66 uIU/mL (0.47-4.68)
[2025-02-07 18:47] LABS: Ferritin 10 ng/mL (6-137)
== END ==
PROVIDERS: PCP Family Medicine; Referring Provider Family Medicine; Visit Provider Family Medicine
DX: R42 Dizziness and giddiness (principal); G44.209 Tension-type headache, unspecified, not intractable
CPT/HCPCS: 80053; 82728; 83540; 83550; 84443; 85025

== ENCOUNTER → 2025-03-20 09:52 | Outpatient (CLI) | payer OTHER, SELFPAY | LOC: CAR 09:53 | PROVIDERS: PCP Family Medicine; Referring Provider Family Medicine; Visit Provider Family Medicine | DX: R42 Dizziness and giddiness (principal); R55 Syncope and collapse | CPT/HCPCS: 93246 ==

== ENCOUNTER → 2025-04-07 14:50 | Outpatient (CLI) | payer OTHER, SELFPAY ==
--- NOTE | 2025-04-07 14:51 | DI.MRI.S_ITS ---
PROCEDURE: MR HEAD/BRAIN WO CON INDICATIONS: dizziness TECHNIQUE: Noncontrast axial T1 spin echo, axial T2 fast spin echo, sagittal and axial FLAIR, coronal T2 fast spin echo, axial gradient echo, axial diffusion and ADC through the brain. COMPARISON: None. FINDINGS: Image quality: Excellent. CSF Spaces: Basal cisterns are patent. No extra-axial fluid collections. Ventricles are normal in size and shape. Brain: No intracranial masses or hemorrhage. Desai/white matter interface is normal. Brainstem appears normal. Diffusion-weighted images demonstrate no acute infarct. No chronic ischemic insults. Normal intravascular flow voids are present. Skull and face: Calvarium has normal marrow signal. Orbits appear normal. Sinuses: Sinuses and mastoids are clear. IMPRESSION: No acute intracranial abnormalities. Normal appearance of the brain. Approved by: Marcus Marks M.D. on 04/07/2025 at 16:30
--- NOTE | 2025-04-07 14:51 | DI.ECHO.S_ITS ---
[facility] +---------+ [facility] : : [address] : : [place] : : [address] : : Phone: [phone] Echocardiogram Report + + :Name: YAS BANKS Study Date: 04/07/2025 Height: 64 in : :[facility] ReadingLocation: Weight: 130 lb : : Gender: Female BSA: 1.6 m2 : :: 1990 Age: 34 yrs BP: 106/67 mmHg: :Reason For Study: Dizziness : :Ordering Physician: SUSAN, : :MARGRET Burger Performed By: Albert Harley : :Referring: MARGRET DAVIS R : + + Interpretation Summary Normal echocardiogram. Procedure: A two-dimensional transthoracic echocardiogram with color flow and Doppler was performed. The study quality was technically adequate. There is no prior echocardiogram noted for this patient. The patient was in normal sinus rhythm during the exam. Left Ventricle: The left ventricle is normal in size and wall thickness. Left ventricular systolic function is normal. The ejection fraction is estimated to be 60-65%. There are no focal wall motion abnormalities. Normal diastolic function. Right Ventricle: The right ventricle is normal in size and function. Atria: The left atrial size is normal. Right atrial size is normal. There is no Doppler evidence for an interatrial shunt. Mitral Valve: The mitral valve leaflets appear normal. There is no evidence of stenosis, fluttering, or prolapse. There is trace mitral regurgitation. Aortic Valve: The aortic valve is trileaflet. The aortic valve opens well. There is no aortic valve stenosis. No aortic regurgitation is present. Tricuspid Valve: The tricuspid valve leaflets are thin and pliable. There is trace tricuspid regurgitation. Pulmonary artery pressures cannot be estimated because of the lack of a measurable TR jet velocity but the IVC suggests a CVP of around 3 mmHg. Pulmonic Valve: The pulmonic valve is not well seen, but is grossly normal. There is a trace or physiologic amount of pulmonic regurgitation. Great Vessels: The aortic root is normal size. The ascending aorta is normal in size. The aortic arch could not be visualized. The pulmonary artery is normal size. The IVC is of normal diameter and collapses greater than 50% with a sniff. This suggests a low right atrial pressure of 3 mm Hg. Pericardium/ Pleura There is no pericardial effusion. MMode/2D Measurements & Calculations LVIDd: 4.8 cm LVOT diam: 2.0 cm LVIDs: 3.3 cm Ao root diam: 2.7 cm FS: 32.2 % asc Aorta Diam: 2.5 cm EPSS: 0.67 cm IVSd: 0.60 cm LVPWd: 0.80 cm LV ortega. diameter/BSA (cm/m^2): 3.0 LV sys. diameter/BSA (cm/m^2): 2.0 LA A2 area: 14.8 cm2 RA long axis: 5.4 cm LA A4 area: 16.9 cm2 RA area: 14.4 cm2 LA length (vol): 5.1 cm RA vol: 32.9 ml LA vol: 41.9 ml RA : 20.2 ml/m2 LA vol index: 25.7 ml/m2 IVC diam: 1.9 cm RVD1 (basal): 2.9 cm RVD2 (mid): 2.5 cm TAPSE: 2.7 cm Doppler Measurements & Calculations Ao V2 max: 141.0 cm/sec LVOT Max Onesimo: 111.1 cm/sec Ao V2 mean: 99.4 cm/sec LV V1 max P.9 mmHg Ao max P.9 mmHg LV V1 VTI: 21.6 cm Ao mean P.4 mmHg PATRICIA(I,D): 2.6 cm2 Ao V2 VTI: 25.5 cm PATRICIA(V,D): 2.4 cm2 sev ratio: 0.85 PATRICIA indexed to BSA (cm^2/m^2): 1.6 MV E max onesimo: 98.2 cm/sec PA V2 max: 117.5 cm/sec MV A max onesimo: 74.1 cm/sec PA V2 mean: 87.8 cm/sec MV E/A: 1.3 PA mean P.3 mmHg Med Peak E' Onesimo: 12.3 cm/sec PA pr(Accel): 16.1 mmHg E/E' med: 8.0 Lat Peak E' Onesimo: 16.6 cm/sec E/E' lat: 5.9 E/e' average: 7.0 MV dec time: 0.19 sec SV(LVOT): 65.2 ml Qp/Qs (V,Ao): 1.0/3.6 Qp/Qs (V,LVOT): 1.0/1.5 Reading Physician:09:52 AM
== END ==
PROVIDERS: PCP Family Medicine; Referring Provider Family Medicine; Visit Provider Family Medicine
DX: R55 Syncope and collapse (principal); R42 Dizziness and giddiness
CPT/HCPCS: 70551; 93306